=== PATIENT | female | born 1970 | race African-American/Black ===

== ENCOUNTER 2016-07-08 17:32 | Emergency (ER) | payer OTHER ==
[~2016-07-08] VITALS: Ht 170.2 cm; Wt 108.8 kg
[~2016-07-08 17:32] MED LIST: AMBIEN10 MG PO; AMOXICILLIN875 MG PO; ASPIR-LOW81 MG PO; ATIVAN0.5 MG PO; BUSPAR30 MG PO; CARAFATE100 MG/ML PO; CLONAZEPAM1 MG PO; CYANOCOBAL1000 MCG/2 IM; CYMBALTA30 MG PO; FLEXERIL10 MG PO; FOLIC ACID1 MG PO; HYDROCHLOROTHIA25 MG PO; HYDROXYZINE PAM50 MG PO; KEFLEX500 MG PO; LAMICTAL200 MG PO; LEVOTHYROXINE100 MCG PO; LEVOTHYROXINE175 MCG PO; LORTAB 5-325 M1 EACH PO; METHOTREXATE2.5 MG PO; NORTRIPTYLINE H25 MG PO; PERCOCET 5/31 TABLET PO; PHENERGAN25 MG PR; PRAVASTATIN SOD40 MG PO; PYRIDIUM200 MG PO; TIROSINT13 MCG PO; TOPAMAX100 MG PO; TOPAMAX25 MG PO; TORADOL10 MG PO; TREXALL7.5 MG PO; ULTRAM50 MG PO; VALIUM10 MG PO; VITAMIN B12 100MCG PO; VITAMIN D35000 UNIT PO; VITAMIN D5000 UNIT PO; VOLTAREN50 MG PO; ZANTAC150 MG PO; ZOFRAN ODT4 MG PO; ZOFRAN4 MG PO; ZOLPIDEM TARTRA10 MG PO
[2016-07-08 18:03] LABS: HEMATOCRIT 35.4 % (36.0-46.0); MCHC 33.3 G/DL (30.0-36.0); MCV 95.9 FL (83-99); MEAN PLAT.VOLUME 9.7 uM^3 (9.5-12.4); PLATELET COUNT 229 K/uL (156-360); RBC DIS.WIDTH-SD 41.8 % (39-53); RED BLOOD COUNT 3.69 M/uL (3.80-5.20); WHITE BLOOD COUNT 4.2 K/uL (4.1-10.2)
[2016-07-08 18:14] LABS: CHLORIDE 104 mEq/L (99-109); POTASSIUM 3.9 mEq/L (3.7-5.4); SODIUM 139 mEq/L (136-147)
[2016-07-08 18:15] LABS: GLUCOSE 101 mg/dL (70-99)
[2016-07-08 18:17] LABS: ANION GAP 9 MEQ/L (2-14)
[2016-07-08 18:19] LABS: GFR ESTIMATE (CALCULATED) > 59 mL/min/
[2016-07-08 18:20] LABS: UREA NITROGEN (BUN) 15 mg/dL (9-23)
[2016-07-08] MEDS ORDERED: NORCO 7.5/321 TABLET PO (18:45)
[2016-07-08] MEDS ORDERED: VALIUM5 MG PO (18:45)
[2016-07-08] MEDS ORDERED: MOTRIN800 MG PO (18:45)
[2016-07-08 19:40] VITALS: BP 132/81
== END 2016-07-08 19:56 | disposition home or self-care (01) ==
LOC: EME 17:32
DX: M62.830 Muscle spasm of back (principal); R51 Headache; Z88.8 Allergy status to other drugs, medicaments and biological substances; I10 Essential (primary) hypertension; M32.9 Systemic lupus erythematosus, unspecified; Z90.710 Acquired absence of both cervix and uterus
CPT/HCPCS: 71020; 80048; 85027; 99281; 99284; J1885

== ENCOUNTER 2016-07-18 10:43 | Emergency (ER) | payer OTHER ==
[~2016-07-18] VITALS: Ht 170.2 cm; Wt 109.0 kg
[~2016-07-18 10:43] MED LIST changes: +MOTRIN800 MG PO; +NORCO 7.5/321 TABLET PO; +VALIUM5 MG PO
[2016-07-18 11:41] LABS: HEMATOCRIT 35.7 % (36.0-46.0); MCH 32.1 PG (29.0-34.0); MCHC 32.8 G/DL (30.0-36.0); MCV 97.8 FL (83-99); MEAN PLAT.VOLUME 10.4 uM^3 (9.5-12.4); PLATELET COUNT 192 K/uL (156-360); RBC DIS.WIDTH-CV 11.9 % (11.8-14.6); RBC DIS.WIDTH-SD 42.7 % (39-53); RED BLOOD COUNT 3.65 M/uL (3.80-5.20); WHITE BLOOD COUNT 3.8 K/uL (4.1-10.2)
[2016-07-18 11:48] LABS: CHLORIDE 110 mEq/L (99-109); POTASSIUM 3.7 mEq/L (3.7-5.4); SODIUM 140 mEq/L (136-147)
[2016-07-18 11:51] LABS: GLUCOSE 65 mg/dL (70-99)
[2016-07-18 11:52] LABS: ANION GAP 7 MEQ/L (2-14); TOTAL BILIRUBIN 0.7 mg/dL (0.0-1.0)
[2016-07-18 11:54] LABS: ALKALINE PHOSPHATASE 69 IU/L (3-129); GFR ESTIMATE (CALCULATED) > 59 mL/min/
[2016-07-18 11:55] LABS: UREA NITROGEN (BUN) 19 mg/dL (9-23)
[2016-07-18 11:57] LABS: INFLUENZA A VIRAL ANTIGEN NEGATIVE; INFLUENZA B VIRAL ANTIGEN NEGATIVE
[2016-07-18 11:58] LABS: LIPASE 18 U/L (1.0-51.0)
[2016-07-18] MEDS ORDERED: ZOFRAN ODT4 MG PO (12:32)
[2016-07-18 12:44] VITALS: BP 132/81
== END 2016-07-18 12:45 | disposition home or self-care (01) ==
LOC: EME 10:43
PROVIDERS: Physician Assistant Medical
DX: B34.9 Viral infection, unspecified (principal); M32.9 Systemic lupus erythematosus, unspecified; I10 Essential (primary) hypertension; Z79.899 Other long term (current) drug therapy; Z85.05 Personal history of malignant neoplasm of liver; Z85.850 Personal history of malignant neoplasm of thyroid
CPT/HCPCS: 71020; 80053; 83690; 85027; 87502; 99281; 99285

== ENCOUNTER 2016-09-24 21:09 | Emergency (ER) | payer OTHER ==
[~2016-09-24] VITALS: Ht 170.2 cm; Wt 108.6 kg
[2016-09-24 21:29] VITALS: BP 136/88
[2016-09-24] MEDS ORDERED: CYCLOBENZAPRINE10 MG PO (21:33)
[2016-09-24] MEDS ORDERED: ASPIRIN81 M2 PO (21:34)
[2016-09-24] MEDS ORDERED: ERGOCALCIF50000 UNIT PO (21:39)
[2016-09-24] MEDS ORDERED: AMBIEN10 MG PO (21:40)
[2016-09-24] MEDS ORDERED: NAPROXEN500 MG PO (21:41)
== END 2016-09-24 21:54 | disposition home or self-care (01) ==
LOC: EME 21:09
DX: S46.911A Strain of unspecified muscle, fascia and tendon at shoulder and upper arm level, right arm, initial encounter (principal); M54.2 Cervicalgia; M79.601 Pain in right arm; X58.XXXA Exposure to other specified factors, initial encounter; Z79.82 Long term (current) use of aspirin
CPT/HCPCS: 99281; 99284

== ENCOUNTER 2016-10-06 13:14 | Emergency (ER) | payer SELFPAY ==
[~2016-10-06] VITALS: Ht 170.2 cm; Wt 100.0 kg
[~2016-10-06 13:14] MED LIST changes: +ASPIRIN81 M2 PO; +CYCLOBENZAPRINE10 MG PO; +ERGOCALCIF50000 UNIT PO; +NAPROXEN500 MG PO
[2016-10-06 13:31] VITALS: BP 135/74
[2016-10-06] MEDS ORDERED: NAPROXEN500 MG PO (14:27)
[2016-10-06] MEDS ORDERED: FLEXERIL10 MG PO (14:27)
== END 2016-10-06 14:35 | disposition home or self-care (01) ==
LOC: EME 13:14
DX: M25.552 Pain in left hip (principal); M54.5 Low back pain; W10.9XXA Fall (on) (from) unspecified stairs and steps, initial encounter
CPT/HCPCS: 73502; 99281; 99284